=== PATIENT | male | born 1990 | race African-American/Black ===

== ENCOUNTER 2016-10-13 12:48 | Emergency (ER) | payer MEDICAID | END 2016-10-13 14:47 | disposition home or self-care (01) | LOC: D.ER 12:48 | DX: H66.42 Suppurative otitis media, unspecified, left ear (principal); F17.200 Nicotine dependence, unspecified, uncomplicated ==

== ENCOUNTER 2017-02-21 15:50 | Emergency (ER) | payer MEDICAID ==
[2017-02-21 16:57] LABS: BASOPHILS 0.1 % (0-2); EOSINOPHILS 0.5 % (0-7); HEMATOCRIT 42.2 % (42.0-54.0); HEMOGLOBIN 14.7 g/dL (13.5-17.5); IMMATURE GRANULOCYTES 0.1 % (0-5); LYMPHOCYTES 28.7 % (15-50); MCH 29.2 pg (26.0-34.0); MCHC 34.8 g/dL (31.0-37.0); MCV 83.7 fL (80.0-100.0); MEAN PLATELET VOLUME 9.3 fL (7.4-10.4); NEUTROPHILS 56.6 % (40-80); PLATELET COUNT 257 10x3/uL (130-400); RBC 5.04 10x6/uL (4.20-6.10); RDW 13.3 % (11.5-14.5); WBC 7.5 10x3/uL (4.8-10.8)
[2017-02-21 17:10] LABS: ALBUMIN 3.2 g/dL (3.4-5.0); ALKALINE PHOSPHATASE 65 U/L (46-116); ALT (SGPT) 19 U/L (10-68); BILIRUBIN - TOTAL 0.56 mg/dL (0.2-1.3); CALC OSMOLALITY 277 mosm/kg (275-300); CALCIUM 8.9 mg/dL (8.5-10.1); CARBON DIOXIDE 26.7 mmol/L (21.0-32.0); CHLORIDE - SERUM 107 mmol/L (98-107); GLUCOSE 90 mg/dL (74-106); POTASSIUM - SERUM 3.9 mmol/L (3.5-5.1); PROTEIN - SERUM 6.7 g/dL (6.4-8.2); SODIUM 141 mmol/L (136-145); UREA NITROGEN 5 mg/dL (7-18); eGFR NON AFRICAN AMERICAN > 90 mL/min (90-120)
== END 2017-02-21 20:15 | disposition home or self-care (01) ==
LOC: D.ER 15:50
PROVIDERS: Emergency Medicine
DX: B34.9 Viral infection, unspecified (principal)